=== PATIENT | female | born 1965 | race Caucasian/White ===

== ENCOUNTER → 2020-03-29 | Outpatient (CLI) | payer BC ==
--- NOTE | 2020-03-30 09:48 | RAD ---
EXAM DESCRIPTION: Pelvis CLINICAL HISTORY: 55 years Female, PAIN IN RIGHT HIP COMPARISON: None. FINDINGS: Single frontal x-ray view of the pelvis. No fracture. No dislocation. Normal bony mineralization. Sacrum appears intact. Normal SI joints. Multiple phleboliths. Proximal femurs appear intact. Normal appearance of the hip joints. IMPRESSION: Negative for fracture or dislocation. Electronically signed by: Brett Champion MD 03/30/2020 9:46 AM CDT
--- NOTE | 2020-03-30 09:48 | RAD ---
EXAM DESCRIPTION: Hip,Right 2 Views CLINICAL HISTORY: 55 years, Female, PAIN IN HIP COMPARISON: None TECHNIQUE: AP and frog leg lateral views of the right hip FINDINGS: 2 views of the right hip reveal no fracture or dislocation. Few phleboliths in the pelvis. No lytic bone lesion. There is no joint space abnormality observed. IMPRESSION: Negative for fracture or dislocation. Electronically signed by: Brett Champion MD 03/30/2020 9:47 AM CDT
--- NOTE | 2020-03-30 09:49 | RAD ---
EXAM DESCRIPTION: Lumbar Spine 3 Views CLINICAL HISTORY: RADICULOPATHY, LUMBOSACRAL REGION COMPARISON: None Available. TECHNIQUE: AP/lateral/coned-down lateral FINDINGS: Slight rightward curvature of the lower thoracic and upper lumbar spine. Otherwise anatomic alignment of the vertebral bodies of the lumbar spine. Degenerative facet disease on the right at L5-S1. Frontal view shows intact pedicles and transverse processes. Sacrum appears intact with normal SI joints. Lateral view shows no vertebral compressions. Disc height is well-preserved. Normal bony mineralization. No destructive lesion. IMPRESSION: No diagnostic abnormality. Electronically signed by: Brett Champion MD 03/30/2020 9:48 AM CDT
== END | disposition home or self-care (01) ==
LOC: RAD 15:18
PROVIDERS: ATTEND Nurse Practitioner
DX: M54.17 Radiculopathy, lumbosacral region (principal); M25.559 Pain in unspecified hip

== ENCOUNTER → 2020-06-02 | Outpatient (CLI) | payer BC ==
--- NOTE | 2020-06-02 15:15 | MRI ---
EXAM DESCRIPTION: Lumbar Spine w/o Contrast CLINICAL HISTORY: 55 years Female, LOW BACK PAIN COMPARISON: Lumbar spine radiograph 03/29/2020. TECHNIQUE: Multisequence, multiplanar images of the lumbar spine without intravenous contrast. FINDINGS: For the purpose of this report, the designated L5-S1 disc space will be referred to as axial T2 image 3, series 501. Vertebrae: No acute fracture or acute compression deformity. Mild periarticular edema about the right greater than left L5-S1 facets. Normal AP alignment. Slight dextrocurvature centered at L2-L3. Spinal cord: Termination of the conus medullaris at T12-L1. Normal nerve roots of the cauda equina. Discs, facets, spinal canal, and neural foramina: Minimal disc desiccation at L3-4 and L4-5. Mild disc space during at L2-3 and L3-4. L1-L2: No disc bulge. Moderate facet arthropathy. Spinal canal and neuroforamina patent. L2-3: Small disc bulge posteriorly. Severe facet arthropathy. Spinal canal and neuroforamina patent. L3-4: Minimal disc bulge. Severe facet arthropathy and small right facet joint effusion. Spinal canal patent. Mild bilateral neural foraminal stenosis. L4-5: Small disc bulge. Severe facet arthropathy. Spinal canal patent. Mild left greater than right neural foraminal stenosis. L5-S1: Small disc bulge eccentric towards the left facet containing posterior left eccentric tiny annular fissure. Severe facet arthropathy and small right facet joint effusion. Spinal canal patent. Neuroforamina patent. Paraspinous soft tissues: Moderate periarticular edema about the right greater than left L4-5 and L5-S1 facets. Cortical right renal cyst. IMPRESSION: 1. No acute fracture. 2. Lumbar spondylosis with no spinal canal compromise and no greater than mild neural foraminal stenosis as above. 3. Periarticular edema about the L4-5 and L5-S1 facets as above may be reactive or represent active consolidation. Electronically signed by: Mendel De La Cruz MD 06/02/2020 3:13 PM CDT
== END ==
LOC: MRI 13:57
PROVIDERS: ATTEND Nurse Practitioner
DX: M51.86 Other intervertebral disc disorders, lumbar region (principal); M47.896 Other spondylosis, lumbar region; M48.061 Spinal stenosis, lumbar region without neurogenic claudication; M51.36 Other intervertebral disc degeneration, lumbar region; M25.48 Effusion, other site; R60.0 Localized edema; N28.1 Cyst of kidney, acquired